=== PATIENT | female | born 1935 | race Caucasian/White ===

== ENCOUNTER → 2017-11-04 | Outpatient (CLI) | payer MEDICARE, OTHER | END | disposition home or self-care (01) | LOC: CFH 11:43 | PROVIDERS: ATTEND Internal Medicine | DX: Z12.31 Encounter for screening mammogram for malignant neoplasm of breast (principal) | CPT/HCPCS: 77067 ==

== ENCOUNTER → 2018-03-19 | Outpatient (CLI) | payer MEDICARE, OTHER | END | disposition home or self-care (01) | LOC: CFH 11:47 | PROVIDERS: ATTEND Nurse Practitioner Primary Care | DX: M18.9 Osteoarthritis of first carpometacarpal joint, unspecified (principal); M85.842 Other specified disorders of bone density and structure, left hand; C44.90 Unspecified malignant neoplasm of skin, unspecified; I10 Essential (primary) hypertension; R53.83 Other fatigue; R26.89 Other abnormalities of gait and mobility; E03.9 Hypothyroidism, unspecified; F06.4 Anxiety disorder due to known physiological condition; F06.31 Mood disorder due to known physiological condition with depressive features; R25.1 Tremor, unspecified; R41.3 Other amnesia; M81.8 Other osteoporosis without current pathological fracture; R42 Dizziness and giddiness; R73.01 Impaired fasting glucose; E78.2 Mixed hyperlipidemia; R40.0 Somnolence ==

== ENCOUNTER → 2018-11-13 | Outpatient (CLI) | payer MEDICARE, OTHER | END | disposition home or self-care (01) | LOC: CVU 15:33 | PROVIDERS: ATTEND Nurse Practitioner Primary Care | DX: I08.0 Rheumatic disorders of both mitral and aortic valves (principal); I11.9 Hypertensive heart disease without heart failure; E78.5 Hyperlipidemia, unspecified | CPT/HCPCS: 93306 ==

== ENCOUNTER 2018-12-11 10:58 | Outpatient (CLI) | payer MEDICARE, OTHER | END 2018-12-11 23:59 | disposition home or self-care (01) | LOC: CFH 10:58 | PROVIDERS: ATTEND Nurse Practitioner Primary Care | DX: Z02.9 Encounter for administrative examinations, unspecified (principal) ==

== ENCOUNTER → 2018-12-18 | Outpatient (CLI) | payer MEDICARE, OTHER | END | disposition home or self-care (01) | LOC: CFH 12:50 | PROVIDERS: ATTEND Nurse Practitioner Primary Care | DX: R92.2 Inconclusive mammogram (principal); M81.0 Age-related osteoporosis without current pathological fracture; M06.9 Rheumatoid arthritis, unspecified; E78.2 Mixed hyperlipidemia; G47.30 Sleep apnea, unspecified; I10 Essential (primary) hypertension; E03.9 Hypothyroidism, unspecified; F06.31 Mood disorder due to known physiological condition with depressive features; Z80.3 Family history of malignant neoplasm of breast | CPT/HCPCS: 76641; 77066; 77080; G0279 ==

== ENCOUNTER → 2019-01-14 | Outpatient (CLI) | payer MEDICARE, OTHER | END | disposition home or self-care (01) | LOC: CFH 10:51 | PROVIDERS: ATTEND Nurse Practitioner Primary Care | DX: R07.89 Other chest pain (principal); I10 Essential (primary) hypertension; M81.8 Other osteoporosis without current pathological fracture; E78.2 Mixed hyperlipidemia; G47.30 Sleep apnea, unspecified | CPT/HCPCS: 71046 ==

== ENCOUNTER → 2020-12-26 | Outpatient (CLI) | payer MEDICARE, OTHER ==
[2020-12-26 18:42] LABS: HCT (SEDRATE) 44.9 % (34.6-47.8)
[2020-12-26 18:44] LABS: BASOPHILS % (AUTO) 1 % (0-1); EOSINOPHILS % (AUTO) 2 % (1-7); LYMPHOCYTES % (AUTO) 30 % (22-44); MD NO; MEAN CORPUSCULAR HEMOGLOBIN 30.4 pg (27.0-34.8); MEAN CORPUSCULAR HGB CONC 33.3 g/dL (32.4-35.8); MEAN PLATELET VOLUME 7.9 fL (7.4-10.4); MONOCYTES % (AUTO) 7 % (2-9); NEUTROPHILS % (AUTO) 60 % (42-75); PLATELET COUNT 209 x10^3/uL (130-400); RED BLOOD COUNT 4.94 x10^6/uL (3.82-5.3); RED CELL DISTRIBUTION WIDTH 13.2 % (9.6-15.2)
[2020-12-26 18:51] LABS: MICROSCOPIC INDICATED
[2020-12-26 18:55] LABS: ALANINE AMINOTRANSFERASE 32 U/L (12-78); ANION GAP 7 mmol/L (5-15); C-REACTIVE PROTEIN, QUANT 0.07 mg/dL (0.02-0.49); CHLORIDE 107 mmol/L (98-107); CREATININE 0.94 mg/dL (0.55-1.02)
[2020-12-26 19:05] LABS: ALKALINE PHOSPHATASE 89 U/L (45-117); BILIRUBIN,TOTAL 0.5 mg/dL (0.2-1.0); TOTAL PROTEIN 7.9 g/dL (6.4-8.2)
== END | disposition home or self-care (01) ==
LOC: RAD 17:23
PROVIDERS: ATTEND Internal Medicine
DX: Z09 Encounter for follow-up examination after completed treatment for conditions other than malignant neoplasm (principal); Z00.00 Encounter for general adult medical examination without abnormal findings; S06.5X9D Traumatic subdural hemorrhage with loss of consciousness of unspecified duration, subsequent encounter; R41.89 Other symptoms and signs involving cognitive functions and awareness; I10 Essential (primary) hypertension; M86.9 Osteomyelitis, unspecified; G47.30 Sleep apnea, unspecified; M79.89 Other specified soft tissue disorders; M85.871 Other specified disorders of bone density and structure, right ankle and foot; M25.471 Effusion, right ankle; K57.92 Diverticulitis of intestine, part unspecified, without perforation or abscess without bleeding; M81.8 Other osteoporosis without current pathological fracture; N32.81 Overactive bladder; R01.1 Cardiac murmur, unspecified; N30.90 Cystitis, unspecified without hematuria; C44.90 Unspecified malignant neoplasm of skin, unspecified; F06.4 Anxiety disorder due to known physiological condition; X58.XXXD Exposure to other specified factors, subsequent encounter
CPT/HCPCS: 36415; 80053; 81001; 83036; 84443; 85025; 85651; 86140; 87040; 87086